=== PATIENT | male | born 1970 ===

== ENCOUNTER 2024-11-05 07:09 | Emergency (ER) | payer SELFPAY ==
[2024-11-05 07:24] VITALS: BP 122/64; BP 165/76; PULSE 113; PULSE 118; RESP 26; O2SAT 90; O2SAT 98; BMI 30.6
--- NOTE | 2024-11-05 07:30 | ED.AMS ---
HPI - Altered Mental Status General Chief Complaint: Overdose Stated Complaint: OD, narcan given Time Seen by Provider: 11/05/24 07:21 History of Present Illness HPI narrative: Patient is a 54-year-old found by a co-worker to be Altered. Not breathing. Patient reports of taking 2 bags of heroin along with some crack cocaine. Subsequently became unresponsive. EMS arrived patient received 8 mg of Narcan and woke up. Sent to the ED for further evaluation. Related Data Allergies Allergy/AdvReac Type Severity Reaction Status Date / Time No Known Allergies Allergy Verified 11/05/24 07:32 Review of Systems Review of Systems: Patient unable to answer Questions [facility] Social History Social History Smoked in Last 30 Days: No Use of substances other than those prescribed or required for medical reasons: Yes Substance Use Type: Crack/Cocaine, Heroin and Marijuana Substance Use Frequency: Chronic Longstanding Last Used Substance: Just Prior to Admission Any prior treatment program specific to substance use: No Advance Directives: No Advance Directives Information Provided: No Do you have a plan to hurt others: No Plan Physical Exam ED Vital Signs: Vital Signs - 24 hr 11/05/24 07:24 11/05/24 09:10 11/05/24 11:17 Temperature 97.5 F Pulse Rate 118 H 84 84 Respiratory Rate 26 H 18 20 Blood Pressure 165/76 H 165/68 H 102/57 L Pulse Oximetry 90 L 100 97 Oxygen Delivery Method Room Air Room Air Room Air BMI result Body Mass Index 30.6 Appearance: calm at times agitated at others moving about. Eyes: Pupils equal, round and reactive to light. ENT: Pharynx normal. Neck: Normal inspection. Neck supple. No lymph nodes noted. No crepitus CVS: Normal heart rate and rhythm. Pulses normal. Normal S1 and S2 Respiratory: No respiratory distress. Breath sounds normal. No Wheezing. No rales Abdomen: Soft and nontender. No rigidity. No distention. good BS x4 Skin: Skin warm and dry. Normal skin color. Normal skin turgor. Extremities: No lower extremity edema. Neurovascular intact to all extremities. No Lacerations. No Rash Neuro: Oriented To self. Moving all extremities. Medications Administered Discontinued Medications Generic Name Dose Route Start Last Admin Trade Name Freq PRN Reason Stop Dose Admin Sodium Chloride 1,000 mls @ 999 mls/hr 11/05/24 07:45 11/05/24 08:47 Ns IV 11/05/24 08:45 Infused .Q1H1M PAULINE Infusion Sodium Chloride 1,000 mls @ 999 mls/hr 11/05/24 09:30 11/05/24 09:44 Ns IV 11/05/24 10:30 999 mls/hr .Q1H1M PAULINE Administration Lorazepam 1 mg 11/05/24 09:17 11/05/24 09:37 Lorazepam 1 Mg Tablet PO 11/05/24 09:18 1 mg ONCE ONE Administration Medical Decision Making Medical Decision Making [facility] Narrative: Patient found at work by coworkers suspecting an overdose patient is admits to using heroin and cocaine. He was given 8 mg of Narcan by EMS which woke him up. He stated he took 2 bags of heroin. His tox screen was positive for narcotics positive for cocaine. Positive for fentanyl. Patient was monitored in the emergency department for about 5 hours. Currently in no distress family is present patient does not want to go to detox will discharge patient to family Differential Diagnosis Differential Diagnoses: The differential diagnosis associated with the presentation includes Hypoglycemia, narcotic overdose cocaine overdose Admission/Observation Consideration of admission/observation: Escalation of care including admission/observation considered Lab Data [facility] Lab Attestation statement: I reviewed the patient's lab results. 11/05/24 07:42 11/05/24 07:42 Labs: Lab Results 11/05/24 11/05/24 Range/Units 07:42 08:04 WBC 10.8 (4.8-10.8) X10*3/uL RBC 4.79 (4.60-5.80) X10*6/uL Hgb 15.1 (14.0-18.0) g/dl Hct 44.2 (42.0-52.0) % MCV 92.3 (80.0-98.0) fL MCH 31.5 (27.0-33.0) pg MCHC 34.2 (31.0-36.0) g/dl RDW 13.1 (11.0-16.0) % Plt Count 187 (160-400) X10*3/uL MPV 9.9 (9.4-12.4) fL Immature Gran % (Auto) 0.5 H (0.0-0.4) % Neut % (Auto) 72.1 (45-73) % Lymph % (Auto) 21.2 (20-40) % [place] % (Auto) 4.9 (2-11) % Eos % (Auto) 1.0 (0-4) % Baso % (Auto) 0.3 (0-2) % Lymph # (Auto) 2.3 (1.2-4.9) X10*3/uL [place] # (Auto) 0.5 (0.1-1.2) X10*3/uL Eos # (Auto) 0.1 (0.0-0.4) X10*3/uL Baso # (Auto) 0.0 (0.0-0.2) X10*3/uL Abs Immat Gran (auto) 0.05 H (0.00-0.03) X10*3/uL Absolute Neuts (auto) 7.8 (2.0-8.3) x10*3/uL Absolute Nucleated RBC 0.000 (0.0-0.012) X10*3/uL Nucleated RBC % (auto) 0.0 (0.0-0.2) /100WBC Sodium 142 (135-145) mmol/L Potassium 3.6 (3.3-5.1) mmol/L Chloride 101 (96-108) mmol/L Carbon Dioxide 28 (22-29) mmol/L Anion Gap 17 (12-20) BUN 18 H (9-16) mg/dL Creatinine 0.83 (0.5-1.4) mg/dL Estim Creat Clear Calc 105.6 Estimated GFR > 60 Random Glucose 116 H (60-115) mg/dL Calcium 9.5 (8.4-10.2) mg/dL Total Creatine Kinase 327 H (38-174) U/L Urine Opiates Screen POSITIVE H (Not Detect) Ur Buprenorphine Scrn Not Detected (Not Detect) ng/mL Ur Oxycodone Screen Not Detected (Not Detect) ng/mL Urine Methadone Screen Not Detected (Not Detect) ng/mL Urine Fentanyl Screen POSITIVE H (Not Detect) Ur Barbiturates Screen Not Detected (Not Detect) Ur Phencyclidine Scrn Not Detected (Not Detect) Ur Amphetamines Screen Not Detected (Not Detect) U Benzodiazepines Scrn Not Detected (Not Detect) Urine Cocaine Screen POSITIVE H (Not Detect) U Marijuana (THC) Screen POSITIVE H (Not Detect) Independent Historian Clinical information obtained from an independent historian. History obtained from or confirmed by: Other ( patient's son) Social Determinants Patient?s care significantly limited by Social Determinants of Health including: Alcoholism and drug addiction in family and Problems related to primary support group Discharge Plan Discharge Clinical Impression: Drug overdose Patient Disposition: Home, Self-Care Instructions: Narcotic Use Disorder (ED), Cocaine Use Disorder (ED) Additional Instructions: please go to detox. Please stop using cocaine and heroin. Referrals: Physician,Unknown J [Primary Care Provider] - 11/08/24 Print Language: Colombian
[2024-11-05] MEDS: 0.9 % Sodium Chloride 1,000 ML 999 ML IV ×2 (07:46→09:44)
[2024-11-05 07:50] LABS: Basophils Percent Auto 0.3 % (0-2); Eosinophils Absolute Auto 0.1 X10*3/uL (0.0-0.4); Hematocrit 44.2 % (42.0-52.0); Hemoglobin 15.1 g/dl (14.0-18.0); Imm Gran Abs Auto 0.05 X10*3/uL (0.00-0.03); Imm Gran Pct Auto 0.5 % (0.0-0.4); Lymphocytes Absolute Auto 2.3 X10*3/uL (1.2-4.9); Lymphocytes Percent Auto 21.2 % (20-40); MANUAL DIFF FLAG NO; Mean Corpuscular HGB Conc 34.2 g/dl (31.0-36.0); Mean Corpuscular Hemoglobin 31.5 pg (27.0-33.0); Mean Corpuscular Volume 92.3 fL (80.0-98.0); Mean Platelet Volume 9.9 fL (9.4-12.4); Monocytes Absolute Auto 0.5 X10*3/uL (0.1-1.2); Monocytes Percent Auto 4.9 % (2-11); Neutrophils Absolute Auto 7.8 x10*3/uL (2.0-8.3); Neutrophils Percent Auto 72.1 % (45-73); Platelet Count 187 X10*3/uL (160-400); Red Blood Count 4.79 X10*6/uL (4.60-5.80); Red Cell Distribution Width 13.1 % (11.0-16.0); White Blood Count 10.8 X10*3/uL (4.8-10.8)
[2024-11-05 08:05] LABS: Anion Gap 17 (12-20); Blood Urea Nitrogen 18 mg/dL (9-16); Calcium 9.5 mg/dL (8.4-10.2); Carbon Dioxide 28 mmol/L (22-29); Chloride 101 mmol/L (96-108); Creatinine Clr Calc Pharmacy 105.6; Estimated Glomerular Filt Rate > 60; Glucose Random 116 mg/dL (60-115); Potassium 3.6 mmol/L (3.3-5.1); Sodium 142 mmol/L (135-145)
[2024-11-05 08:42] LABS: Amphetamine Screen Urine Not Detected (Not Detect); Barbiturates, Urine Not Detected (Not Detect); Benzodiazepines Screen Urine Not Detected (Not Detect); Buprenorphine Scr Not Detected (Not Detect); Cannabinoid Screen Urine POSITIVE (Not Detect); Cocaine Screen Urine POSITIVE (Not Detect); Fentanyl, urine POSITIVE (Not Detect); Methadone Screen, Urine Not Detected (Not Detect); Opiate Screen Urine POSITIVE (Not Detect); Oxycodone Screen Urine Not Detected (Not Detect); Phencyclidine Screen Urine Not Detected (Not Detect)
[2024-11-05 09:10] VITALS: BP 165/68; PULSE 84; RESP 18; TEMP 36.4; O2SAT 100
[2024-11-05 09:15] VITALS: PULSE 85
[2024-11-05] MEDS: LORazepam 1 MG TABLET PO (09:37)
--- NOTE | 2024-11-05 09:39 | PC.NURSE ---
LAQUITA from Work. Patient found at work by coworkers with suspected overdose. Given 8mg of narcan by EMS. Patient reports taking 2 bags of heroin and coke. denies SI/HI. Patient complains of pain all over rated 10/10. Patient hypertensive but all other vitals WNL. 20G in RFA placed and wrapped for safety. Patient pulled out IV. 20G placed in L hand, wrapped for safety. Patient currently running NaCl 1 liter. Patient showing signs of withdrawl. COWS = 29. Patient diaphoretic and restless. Notified MD. Medicated patient per provider order with ativan, effectiveness pending. Patient son and at bedside. Plan of care on going
[2024-11-05 11:15] VITALS: PULSE 84
[2024-11-05 11:17] VITALS: BP 102/57; PULSE 84; RESP 20; O2SAT 97
[2024-11-05 12:01] VITALS: BP 102/57; PULSE 84; RESP 20; TEMP 36.6; O2SAT 97
--- NOTE | 2024-11-05 12:05 | PC.NURSE ---
Patient sleepy at times but arousable. Patient able to ambulate without difficulties, no deficits noted. MD made aware of ambulation status.
[2024-11-05] MEDS: Naloxone HCl Nasal TAKE HOME 4 MG SPRAY 8 MG NOSTRILALT (12:06)
== END 2024-11-05 12:30 | disposition home or self-care (01) ==
PROVIDERS: Emergency Provider Emergency Medicine Emergency Medical Services
DX: T40.1X1A Poisoning by heroin, accidental (unintentional), initial encounter (principal); Y92.9 Unspecified place or not applicable; F14.10 Cocaine abuse, uncomplicated; R40.4 Transient alteration of awareness; Z51.81 Encounter for therapeutic drug level monitoring; Z79.899 Other long term (current) drug therapy
CPT/HCPCS: 36415; 80048; 80307; 82550; 85025; 96360; 96361; 99285